=== PATIENT | male | born 1980 | race Caucasian/White ===

== ENCOUNTER 2017-02-24 15:55 | Observation (INO) | payer OTHER ==
--- NOTE | 2017-02-24 16:07 | EDPHY ---
H & P HPI/ROS: Chief Complaint: Difficulty speaking HPI: 36-year-old male with no significant past medical history notice that he started having difficulty finding words and speaking at 1:30 a.m. this afternoon. Patient states at 1st it was very difficult but is a bit better now. Coworkers noticed his changes and called 911. Stroke alert was called by EMS. Pre-hospital blood sugar was 188. Patient has been in his normal state health. No recent falls or head injury. ROS: 10 point Review of Systems is negative except as noted in the HPI. PMH: Denies Social History: No smoking, no alcohol, no recreational drug use Family History: non-contributory Physical Exam: Gen: Awake, Alert, No Distress HEENT: Nose: no rhinorrhea Eyes: PERRLA, EOMI Mouth: Moist mucosa Neck: Supple, no JVD Chest: nontender, lungs clear to auscultation Heart: S1, S2 normal, no murmur Abd: Soft, non-tender, no guarding Back: no CVA tenderness, no midline tenderness Ext: no edema, non-tender Skin: no rash Neuro: Per NIH stroke score Constitutional: Initial Vital Signs Temperature (C) 36.9 C 02/24/17 15:55 Heart Rate 98 02/24/17 15:55 Respiratory Rate 16 02/24/17 15:55 Blood Pressure 139/90 H 02/24/17 15:55 O2 Sat (%) 100 02/24/17 15:55 O2 Delivery Mode Room Air Allergies/Adverse Reactions: No Known Allergies Allergy (Unverified 02/06/13 14:46) Home Medications: Medication Instructions Recorded Herbals/Supplements -Info Only 1 ea PO DAILY 02/24/17 Ibuprofen [Motrin (*)] 200 - 400 mg PO DAILY PRN 02/24/17 Medical Decision Making - Diagnostics Imaging Results: Imaging Impressions Head CT 02/24/17 16:04 Impression: 1. No significant intracranial abnormality seen. Subsequent CT angiogram procedure was performed. Findings discussed with Willis Cornejo MD at 16:12 hour, 02/24/2017. Head CTA 02/24/17 16:04 Impression: Normal. Findings and recommendations discussed with Willis Cornejo MD at 1631 hour, . Final report concurs with initial preliminary interpretation. Neck CTA 02/24/17 16:04 Impression: Normal. Note: All stenoses are calculated using NASCET Criteria. Findings and recommendations discussed with Willis Cornejo MD at 1630 hour, . Final report concurs with initial preliminary interpretation. ED Course/Re-evaluation: A 36-year-old male with new onset of expressive in possibly a receptive aphasia at 1:30 a.m. this afternoon. Symptoms had improved by the time he got here but still had an NIH score of 1 with an expressive aphasia. Patient evaluated in the hallway sent immediately to CT scan. 1620 CT noncontrast is negative per Dr. Mcmahon. Will be obtaining CTA. 1630 symptoms have resolved. Patient no longer has a facial. Discussed with Dr. Bey, [facility]. He has evaluated the patient via the computer. He is in agreement. He is given NIH score is 0 at this time. Case discussed with Dr. Navas, radiology. CT angiogram is negative. Will give 325 mg of aspirin now. [address] Shields, hospitalist. He will admit to his service for further care. - Data Points Laboratory Results: Laboratory Results 02/24/17 16:00 02/24/17 16:00 02/24/17 02/24/17 02/24/17 16:00 16:00 15:54 WBC 14.16 10^3/uL H 10^3/uL (3.80-9.50) RBC 5.40 10^6/uL 10^6/uL (4.40-6.38) Hgb 17.4 g/dL g/dL (13.7-17.5) POC Hgb 18.0 gm/dL H gm/dL (13.7-17.5) Hct 49.4 % % (40.0-51.0) POC Hct 53 % H % (40-51) MCV 91.5 fL fL (81.5-99.8) MCH 32.2 pg pg (27.9-34.1) MCHC 35.2 g/dL g/dL (32.4-36.7) RDW 11.8 % % (11.5-15.2) Plt Count 246 10^3/uL 10^3/uL (150-400) MPV 10.2 fL fL (8.7-11.7) Neut % (Auto) 82.5 % H % (39.3-74.2) Lymph % (Auto) 10.0 % L % (15.0-45.0) [place] % (Auto) 6.9 % % (4.5-13.0) Eos % (Auto) 0.1 % L % (0.6-7.6) Baso % (Auto) 0.1 % L % (0.3-1.7) Nucleat RBC Rel Count 0.0 % % (0.0-0.2) Absolute Neuts (auto) 11.69 10^3/uL H 10^3/uL (1.70-6.50) Absolute Lymphs (auto) 1.41 10^3/uL 10^3/uL (1.00-3.00) Absolute Monos (auto) 0.97 10^3/uL H 10^3/uL (0.30-0.80) Absolute Eos (auto) 0.02 10^3/uL L 10^3/uL (0.03-0.40) Absolute Basos (auto) 0.02 10^3/uL 10^3/uL (0.02-0.10) Absolute Nucleated RBC 0.00 10^3/uL 10^3/uL (0-0.01) Immature Gran % 0.4 % % (0.0-1.1) Immature Gran # 0.05 10^3/uL 10^3/uL (0.00-0.10) POC Sodium 141 mEq/L mEq/L (134-144) Sodium 139 mEq/L mEq/L (134-144) POC Potassium 3.3 mEq/L mEq/L (3.3-5.0) Potassium 3.7 mEq/L mEq/L (3.5-5.2) POC Chloride 103 mEq/L mEq/L (97-110) Chloride 101 mEq/L mEq/L (97-110) Carbon Dioxide 21 mEq/l L mEq/l (22-31) Anion Gap 17 mEq/L H mEq/L (8-16) POC BUN 16 mg/dL mg/dL (7-23) BUN 15 mg/dL mg/dL (7-23) Creatinine 1.0 mg/dL mg/dL (0.7-1.3) POC Creatinine 1.0 mg/dL mg/dL (0.7-1.3) Estimated GFR > 60 Glucose 174 mg/dL H mg/dL (70-100) POC Glucose 181 mg/dL H mg/dL (70-100) Calcium 10.8 mg/dL H mg/dL (8.5-10.4) Phosphorus 0.9 mg/dL L mg/dL (2.5-4.5) Total Bilirubin 1.2 mg/dL mg/dL (0.1-1.4) AST 25 IU/L IU/L (17-59) ALT 32 IU/L IU/L (21-72) Alkaline Phosphatase 83 IU/L IU/L (38-126) Total Protein 8.2 g/dL g/dL (6.3-8.2) Albumin 5.2 g/dL H g/dL (3.5-5.0) Ethyl Alcohol < 10 mg/dL mg/dL (0-10) Medications Given: Discontinued Medications Acetaminophen (Tylenol 160mg/5ml Oral Liquid) 1,000 mg PO EDNOW ONE Stop: 02/24/17 17:07 Last Admin: 02/24/17 17:07 Dose: 1,000 mg Aspirin (Aspirin) 325 mg PO EDNOW ONE Stop: 02/24/17 16:35 Last Admin: 02/24/17 16:39 Dose: 325 mg Point of Care Test Results: 02/24/17 15:54 POC Sodium 141 POC Potassium 3.3 POC Chloride 103 POC BUN 16 POC Creatinine 1.0 POC Glucose 181 H Departure - Departure Disposition: [facility] Acute Clinical Impression: Transient cerebral ischemia Condition: Fair NIH Stroke Scale Date of Exam: 02/24/17 Time of Exam: 16:00 Level of Consciousness: Alert LOC Questions: Answers Both LOC Commands: Performs Both Correctly Best Gaze: Normal Visual: No Visual Loss Facial Palsy: Normal Motor Arm-Left: No Drift Motor Arm-Right: No Drift Motor Leg-Left: No Drift Motor Leg-Right: No Drift Limb Ataxis: Absent Sensory: Normal Best Language: Mild/Mod Aphasia Dysarthria: Normal Extinction and Inattention (Neglect): No Abnormality NIH Scale Score: 1
[2017-02-24 16:19] LABS: % IMMATURE GRANULYOCYTES 0.4 % (0.0-1.1); ABSOLUTE IMMATURE GRANULOCYTES 0.05 10^3/uL (0.00-0.10); ADD DIFF? NO; ADD MORPH? NO; ADD SCAN? NO; ATYPICAL LYMPHOCYTE FLAG 0 (0-99); FRAGMENT RBC FLAG 0 (0-99); HEMATOCRIT 49.4 % (40.0-51.0); HEMOGLOBIN 17.4 g/dL (13.7-17.5); LEFT SHIFT FLG 0 (0-99); LIPEMIA HEMOLYSIS FLAG 90 (0-99); MEAN CELL HEMOGLOBIN 32.2 pg (27.9-34.1); MEAN CELL HEMOGLOBIN CONCENTR. 35.2 g/dL (32.4-36.7); MEAN CELL VOLUME 91.5 fL (81.5-99.8); MEAN PLATELET VOLUME 10.2 fL (8.7-11.7); PLATELET CLUMPS FLAG 10 (0-99); PLATELET COUNT 246 10^3/uL (150-400); RED CELL DISTRIBUTION WIDTH 11.8 % (11.5-15.2)
[2017-02-24] MEDS ORDERED: IOPAMIDOL (ISOVUE 370) 100 ML BTL IV ONE (16:20)
--- NOTE | 2017-02-24 16:26 | CPEKG ---
Heart Rate: 92 RR Interval: 652 P-R Interval: 160 QRSD Interval: 96 QT Interval: 376 QTC Interval: 466 P Kinde: 80 QRS Kinde: -52 T Wave Kinde: 70 EKG Severity - ABNORMAL ECG - EKG Impression: SINUS RHYTHM EKG Impression: LAD, CONSIDER LEFT ANTERIOR FASCICULAR BLOCK EKG Impression: BORDERLINE T ABNORMALITIES, ANT-LAT LEADS Electronically Signed By: Willis Cornejo 24-Feb-2017 23:31:38
[2017-02-24 16:30] LABS: ALANINE AMINOTRANSFERASE 32 IU/L (21-72); ALBUMIN 5.2 g/dL (3.5-5.0); ALKALINE PHOSPHATASE 83 IU/L (38-126); ANION GAP 17 mEq/L (8-16); ASPARTATE AMINOTRANSFERASE 25 IU/L (17-59); BILIRUBIN,TOTAL 1.2 mg/dL (0.1-1.4); CALCIUM 10.8 mg/dL (8.5-10.4); CARBON DIOXIDE 21 mEq/l (22-31); CHLORIDE 101 mEq/L (97-110); ETHANOL SERUM < 10 mg/dL (0-10); GLOMERULAR FILTRATION RATE > 60; GLUCOSE 174 mg/dL (70-100); POTASSIUM 3.7 mEq/L (3.5-5.2); SODIUM 139 mEq/L (134-144); TOTAL PROTEIN 8.2 g/dL (6.3-8.2)
[2017-02-24] MEDS ORDERED: ASPIRIN 325 MG TAB PO ONE (16:34)
--- NOTE | 2017-02-24 16:37 | PDCONSULT ---
Makeup Instructor Note: [facility] Note Demographics Consult Type Acute Stroke First Name Jose Last Name Mariam Date of 1980 Age: 36 Gender Male Time of initial page (): 02/24/2017 16:27 Time of return call (): 02/24/2017 16:27 Time Ready to Initiate Telemed Consult (): 02/24/2017 16:28 HPI Additional History (Free Text): 36yo right handed man who presents with expressive aphasia. Noticed initially at 130PM. He is improving. He states that at around 130, he was dizzy, and then sat down. He had lunch at 2PM. At 140PM, he was having issues with getting words out. He has no vision issues. He has a small headache, but no light or sound sensitivity. PMH-- Past Medical History: Denies PMH Social History: non-smoker, non-drinker, no drugs Medications: denies medications Exam Vitals: vital signs reviewed SBP: 147 DBP: 96 NIHSS Time (): 02/24/2017 16:32 LOC 1a: 0 = Alert; keenly responsive LOC 1b: 0 = Answers both questions correctly LOC Commands: 0 = Performs both tasks correctly Best Gaze: 0 = Normal Visual: 0 = No visual loss Facial Palsy 0 = Normal symmetrical movements Motor Arm L: 0 = No drift; limb holds 90 (or 45) degrees for full 10 seconds Motor Arm R: 0 = No drift; limb holds 90 (or 45) degrees for full 10 seconds Motor Leg L: 0 = No drift; leg holds 30-degree position for full 5 seconds Motor Leg R: 0 = No drift; leg holds 30-degree position for full 5 seconds Limb Ataxia 0 = Absent Sensory: 0 = Normal; no sensory loss Best Language: 0 = No aphasia; normal Dysarthria: 0 = Normal Extinction + Inattention: 0 = No abnormality NIHSS: [address]: no bleed CTA Head no large vessel occlusion CTA Neck patent vessels Assessment Assessment: TIA to left hemisphere Plan Lytic/Intervention: NOT IV or IA candidate tPA Exclusion (< 3hr window) Mild or improving symptoms Target Blood Pressure: SBP < 220 Labs Ammonia, B 12, Comprehensive metabolic panel, ESR, HgbA1c, Lipid Panel, TSH, UA, UDS Imaging MRI brain without Diagnostic test echocardiogram with bubble Therapy/Eval PT/OT, Speech/Swallow therapy consult Medication aspirin 325mg per day VTE Prophylaxis SCD, Heparin 5000 units subcutaneously q 12 hours Other LDL goal less than 70, permissive HTN, telemetry monitoring, I have discussed my recommendations with the referring provider Disposition admit
[2017-02-24] MEDS ORDERED: ACETAMINOPHEN 500 MG TAB ONE (17:05)
[2017-02-24] MEDS ORDERED: ACETAMINOPHEN 160 MG/5 ML UDCUP PO ONE (17:06)
[2017-02-24] MEDS ORDERED: ACETAMINOPHEN 325 MG TAB PO PRN (17:34)
[2017-02-24] MEDS ORDERED: ONDANSETRON 4 MG/2 ML VIAL IVP PRN (17:34)
[2017-02-24] MEDS ORDERED: ONDANSETRON DISINTEGRATING 4 MG TAB PO PRN (17:34)
[2017-02-24] MEDS ORDERED: NS 1,000 ML IV SCH (17:45)
--- NOTE | 2017-02-24 19:04 | GHP ---
[f rep st] HISTORY AND PHYSICAL DATE OF ADMISSION: 02/24/2017 HISTORY OF PRESENT ILLNESS: The patient is a 36-year-old gentleman who presented to the ER as a stro ke alert secondary to aphasia. The ER doctor noted that he was aphasic and this happened at work. Nikole edward was unable to name objects. This happened about 1:30 p.m., and he presented shortly thereafter. When I speak with the patient, he describes feeling lightheaded and dizzy, and multiple episodes of a lmost passing out, and speaks as if the aphasia was secondary. His story is somewhat disjointed, and the patient appears well dressed and conversant here with his , but also a bit confused and his acknowledges that he is off. His showed me texts that he sent her during this episode and they were a bit nonsensical and not his standard texting. He denies drugs or alcohol today. He does work as a manufacturing weaver. Denies chemical exposures. His has noted that he has had some episodes of syncope when he has cut his fingers that sound a bit like vasovagal episodes. His pulse is 90 here. He is uncertain if that is his baseline. He has not had fever, chills, cough, sputum, nausea, vomiting, diarrhea. He does not have a history of arrhythmia. He is originally [facility]. He describes good exercise tolerance. He is a nonsmoker, and essentially has no risk fac tors or family history for vascular disease. When I speak to the patient, he is able to name objects but does still seem a bit off. REVIEW OF SYSTEMS: Complete 10-point review of systems conducted, and negative except as noted in e HPI. Addendum the HPI: The patient denies focal weakness or numbness on his body or limbs. PAST MEDICAL HISTORY: None. SOCIAL HISTORY: No tobacco. No recreational drug use. Some alcohol. FAMILY HISTORY: Reviewed and unremarkable. ALLERGIES: No known drug allergies. HOME MEDICATIONS: None. PHYSICAL EXAM: VITAL SIGNS: Temp 37, blood pressure 139/90, pulse 90, breathing 16 times a minute, 100% on room air. GENERAL: No acute distress. Well groomed. HEENT: Sclerae anicteric. Oropharyn x clear. Mucous membranes are moist. NECK: Supple without any lymphadenopathy or JVD. LUNGS: Marin ar to auscultation bilaterally. HEART: S1, S2. Borderline tachy. ABDOMEN: Soft, nontender, nondi stended. LOWER EXTREMITIES: Without edema. Calves nontender. SKIN: Without rash. NEUROLOGIC: T he patient is able to name objects, follow commands. Has normal cerebellar testing. Normal upper ex tremity and lower extremity strength and sensation bilaterally. He does seem a bit off in terms of j ust slower to process than I would anticipate and his corroborates this. LABS: White count 14, hematocrit 49, platelets are 246,000. Sodium 139, potassium 3.7, chloride 101, bicarb 27, BUN 15, creatinine 1.0, glucose 174. Calcium 10. 8 which is slightly high. Phosphorus 0.9. Albumin is 5.2. Ethanol less than 10. Head CT shows no significant intracranial abnormality. Head and neck CTA shows branches are normal. No evidence of aneurysm or malformation. No occlusions. Neck CTA is normal. EKG, interpreted by me, shows sinus at 92, with left axis deviation. Nonspecific interventricular co nduction delay. No ST or T-wave changes. No prior for comparison. I have discussed the case with Dr. Juan Ramon Cornejo, who has discussed the case with [facility]. ASSESSMENT AND PLAN: This is a 36-year-old gentleman with no vascular risk factors, who presents wit h word-finding transient ischemic attack versus hypotension and presyncope. 1. Question transient ischemic attack. It is not clear to me that this represents a transient ische kentrell attack, although I believe it is reasonable to work it up as such. We will order an MRI of his b rain to evaluate for stroke, echocardiogram, telemetry, hemoglobin A1c and cholesterol panel. His sy mptoms have largely resolved, and based on that he is not a candidate for lytics. His NIH stroke sca le was 1 on arrival to the hospital. 2. Question arrhythmia. His story to me is actually concerning for a bradyarrhythmia in that he fel t presyncopal and has episodes of syncope. We will follow him on telemetry. He is certainly tachyca rdic now. Echocardiogram will be obtained. 3. Hyperglycemia. This is a nonfasting sample. It happened after lunch. It is a little higher benjamín n I would expect in this lean gentleman. We will check hemoglobin A1c. 4. Tachycardia. This is borderline and may be the anxiety of the situation. Will follow on telemet ry. 5. Prophylaxis. Pharmacologic prophylaxis is not indicated unless in the hospital longer than 48 ho urs. 6. Disposition. Observation status. /[id number]/MODL
[2017-02-24 19:28] LABS: HEMATOCRIT 49.3 % (40.0-51.0)
[2017-02-25 05:23] LABS: INR 1.1 (0.83-1.16); PROTIME(PATIENT) 14.1 SEC (12.0-15.0)
[2017-02-25 05:36] LABS: CHOLESTEROL 141 mg/dL (140-200); CHOLESTEROL/HDL RATIO 2.94 RATIO (1.00-4.97); HIGH DENSITY LIPOPROTEIN 48 mg/dL (40-65); LDL/HDL RATIO 1.71 RATIO (1.00-3.64); LOW DENSITY LIPOPROTEIN 82 mg/dL (70-100); NON-HIGH DENSITY LIPOPROTEIN 93 mg/dL (90-129); TRIGLYCERIDE 55 mg/dL (40-150); VERY LOW DENSITY LIPOPROTEINS 11 mg/dL (8-25)
[2017-02-25] MEDS ORDERED: GADOBUTROL 10 ML VIAL IVP ONE (09:19)
[2017-02-25 09:31] LABS: HEMOGLOBIN A1C 5.2 % (4.0-6.0)
--- NOTE | 2017-02-25 09:57 | NEUROPROG ---
Assessment: HOSPITAL NEUROLOGY CONSULT REQUESTING: Donnie Shields MD REASON: ? TIA HPI: 36 year old right-handed man with no PMH who presented to our facility yesterday as a code stroke. Patient was at work and feeling normal, but around 1:30pm he felt an overwhelming sense of lightheadedness (he uses the word dizzy, which actually was a sense of lightheadedness). He felt nausea with this. He states he was feeling "off" and had trouble with word-finding - states he could get his words out, but couldn't remember certain words. He states he felt the need to sit down, which seemed to help a little with the lightheadedness. He was not having any CP, palpitations. He endorsed a mild holocranial headache, but he can't give me any description of quality. He feels like his ears were ringing. He texted his regarding his symptoms. His shows me texts, which initially have a few spelling errors, then a single brief communication that is nonsensical. She phoned him because of this - she states he was not dysarthric and he was making sense, but he seemed to be panting heavily, having to work hard to get his words out, like he was short of breath. Patient does not recall any SOB. Coworkers took note of his symptoms and summoned EMS. Symptoms seemed to last about an hour or so. Code stroke was de-escalated in the ED. He had an MRI brain wo which showed several scattered punctate areas of T2 hyperintensity in the subcortical and juxtacortical white matter without any restricted diffusion or other sequence changes. Metabolic/toxic screening only revealed a leukocytosis of 14k - no fevers, but he was tachycardic at points during evaluation. He denies feeling febrile. No chills, neck stiffness , photophobia. Denies any recent illness or toxic exposure. Denies any weakness, sensory loss, gait change, visual disturbance, bowel/bladder dysfunction, neck/back pain, heat intolerance, Lhermitte phenomenon. He does endorse prior syncopal episodes. ROS: As per the HPI, otherwise a complete 12 point ROS was performed and is negative ALLERGIES AND MEDS: As recorded in the EMR - reviewed and reconciled PFSH: As per the intake H&P by Dr. Shields from yesterday EXAM: VS reviewed in EMR GEN: WDWN laying in NAD HEENT: NCAT, sclera anicteric, conjunctiva not injected, MMM, oropharynx clear, no scalp tenderness NECK: supple, nontender, no meningismus CV: RRR s1 s2 wo m/r/c/g. Carotid pulses 2+ wo bruit NEURO: MS: awake, alert, oriented to all spheres. Speech nondysarthric. No language disturbance. Follows commands. Attends to both sides. Some loss of detail surrounding events leading to admission, but otherwise grossly intact memory. Mood a little depressed, odd affect. Good fund of knowledge. CN: pupils 5mm round and reactive. Fundi with sharp discs. VFF. Primary gaze centered. Full ocular motility. Facial sensation preserved. Face symmetric. Hearing grossly intact to finger rub. Palatoglossal movements intact. Shoulder shrug and head turn strong. MOTOR: normal bulk/tone. No adventitial movements. Full power throughout. SENSORY: intact to all modalities throughout. No extinction. COORD: no ataxia FN/HS. Faye preserved. REFLEX: plantars down. No clonus. DTRS 2/4. GAIT: deferred to PT safety eval DATA REVIEW: Labs reviewed in EMR PERSONALLY INTERPRETED RESULTS AND DATA: MRI brain wo - several scattered punctate areas of T2 hyperintensity in the subcortical and juxtacortical white matter without any restricted diffusion or other sequence changes CTA head/neck - normal IMPRESSION AND RECOMMENDATIONS: // LIGHTHEADEDNESS - resolved // ENCEPHALOPATHY - improved // LEUKOCYTOSIS Events sound like they may be related to lack of global cerebral perfusion (? arrhythmia), resulting in lightheadedness, nausea, encephalopathy - has prior history of syncopal episodes. However, leukocytosis and DE ANDA may be from a more systemic inflammatory of infectious issue, like a viral meningitis. I have a low suspicion for anything vascular in origin - CTA was normal and showed no change in vascular caliber. Suspect the MRI findgins are incidental, but they should be reconciled with a contrasted MRI to ensure no inflammatory/neoplastic/ infectious component. Agree with pursuing CSF sampling. - MRI brain w/ contrast - should be done prior to LP to avoid iatrogenic pachymeningeal enhancement - LP after MRI - Cardiac screening per primary team - Continue supportive measures Objective: Vital Signs Temp Pulse Resp BP Pulse Ox 36.8 C 77 14 101/68 97 02/25/17 07:06 02/25/17 07:06 02/25/17 07:06 02/25/17 07:06 02/25/17 07:06 02/24/17 02/25/17 02/26/17 05:59 05:59 05:59 Intake Total 1480 Output Total 1700 Balance -220 PT 14.1 SEC (12.0-15.0) 02/25/17 05:03 INR 1.10 (0.83-1.16) 02/25/17 05:03 Allergies/Adverse Reactions: No Known Allergies Allergy (Unverified 02/06/13 14:46)
[2017-02-25] MEDS ORDERED: LIDOCAINE 1% 300 MG/30 ML SDV ONE ×2 (14:03)
--- NOTE | 2017-02-25 14:43 | HOSPPROG ---
Hospitalist Progress Note Assessment/Plan: #TIA?: CTA, MRI unrevealing. No arrhythmia on EKG. Echo normal -LP with no whites, no organisms on gram stain. Repeat MRI without masses, leptomeningitis -Rx for outpatient Holter DC today Subjective: no headache or dizziness today Objective: Vital Signs Temp Pulse Resp BP Pulse Ox 37.2 C 83 14 113/71 95 02/25/17 11:51 02/25/17 11:51 02/25/17 11:51 02/25/17 11:51 02/25/17 11:51 02/24/17 02/25/17 02/26/17 05:59 05:59 05:59 Intake Total 1480 Output Total 1700 Balance -220 PT 14.1 SEC (12.0-15.0) 02/25/17 05:03 INR 1.10 (0.83-1.16) 02/25/17 05:03 - Physical Exam Constitutional: no apparent distress Eyes: PERRL Ears, Nose, Mouth, Throat: moist mucous membranes Cardiovascular: regular rate and rhythym, no murmur, rub, or gallop, No systolic murmur Respiratory: no respiratory distress Gastrointestinal: normoactive bowel sounds, soft, non-tender abdomen Genitourinary: no bladder fullness Skin: warm Musculoskeletal: full muscle strength Neurologic: AAOx3, CN II-XII Intact Psychiatric: interacting appropriately ICD10 Worksheet Patient Problems: Problems Problem Status Onset Transient cerebral ischemia Acute
--- NOTE | 2017-02-25 15:57 | ECHO ---
[email or web address] [address] [address] Main: [phone] Fax: Transthoracic Echocardiogram Name: KALEY ABRAMS MR#: [id number] Study Date: 02/25/2017 Study Time: 08:53 AM Date of : 1980 Age: 36 year(s) Height: 193 cm (76 in.) Weight: 72.58 kg (160 lb.) BSA: 2.02 m2 Gender: Male Examination: Echo Indication: TIA, Eval for source of emboli Image Quality: Contrast: Requested by: Donnie Shields BP: / Heart Rate: Rhythm: Indication: TIA, Eval for source of emboli Procedure Staff Shuttle Threader: Tate Thorne Reading Physician: Sekou Gaytan Conclusions: ? Low normal left ventricular systolic function (EF 73 %). ? Normal diastolic LV function. ? There is no obvious source of cardiac emboli ? Normal RV function. ? The mitral valve is normal in appearance and function. ? The aortic valve is normal in appearance and function. ? No pericardial effusion. Measurements: Chambers Valvular Assessment AV/MV Valvular Assessment TV/PV Normal Normal Normal Name Value Range Name Value Range Name Value Range Ao Kendal (MM): 2.8 cm (2.2 cm-3.7 AV Vmax: 1.33 m/s (1 m/s-1.7 cm) m/s) IVSd (2D): 0.8 cm (0.6 cm-1.1 AV maxP mmHg ( - ) cm) LVOT Vmax: 1.00 m/s (0.7 m/s-1.1 LVDd (2D): 4.9 cm (4.2 cm-5.9 m/s) cm) MV E Vmax: 1.05 cm/s ( - ) LVDs (2D): 2.8 cm (2.1 cm-4 MV A Vmax: 0.50 cm/s ( - ) cm) MV E/A: 2.10 ( - ) LVPWd (2D): 0.8 cm (0.6 cm-1 cm) LVEF (2D): 73 (>=54 %) Continued Measurements: Valvular Assessment AV/MV Name Value MV E' Septal: 0.12 m/s MV E/E' Septal: 8.70 MV E/E' Lateral: 6.30 Patient: KALEY ABRAMS Study Date: 02/25/2017 Page 1 of 2 08:53 AM Findings: Left Ventricle: Normal size left ventricle. Low normal left ventricular systolic function (EF 73 %). Normal diastolic LV function. There is no obvious source of cardiac emboli Right Ventricle: Normal size right ventricle. Normal RV function. Left Atrium: The left atrium is normal in size. Right Atrium: The right atrium is normal in size. Mitral Valve: The mitral valve is normal in appearance and function. Aortic Valve: The aortic valve is normal in appearance and function. Tricuspid Valve: The tricuspid valve is normal in appearance and function. Pulmonic Valve: The pulmonic valve is normal in appearance and function. Great Vessels: The aorta is normal. Pericardium: No pericardial effusion. (No Signature Object) Patient: KALEY ABRAMS Study Date: 02/25/2017 Page 2 of 2 08:53 AM [id number]
[2017-02-25 16:04] LABS: CSF APPEARANCE CLEAR (CLEAR); CSF COLOR COLORLESS (COLORLESS); CSF SUPERNATANT COLORLESS (COLORLESS); WBC, CSF 0 /mm3 (0-5)
[2017-02-25 16:15] LABS: PROTEIN, CSF 39 mg/dL (12-60)
[2017-02-25 16:29] VITALS: BP 139/84; PULSE 80; RESP 15; TEMP 98.6; O2SAT 96
--- NOTE | 2017-02-25 16:47 | ASMTCMCOM ---
CM Note CM Note Notes: Pt admitted with possible TIA. Anticipate pt will DC with no DC needs. C/M available if needs change. Date Signed: 02/25/2017 04:46 PM Electronically Signed By:Lizet Trotter LCSW
--- NOTE | 2017-02-25 17:51 | GDS ---
[f rep st] DISCHARGE SUMMARY DISCHARGE DIAGNOSIS: Possible syncope versus transient ischemic attack. HISTORY OF PRESENT ILLNESS: A 36-year-old gentleman who presented to the ER as a stroke alert secondary to aphasia. He was unable to name objects at work. This happened at 1:30 p.m., and he presented shortly thereafter. During hospitalist interview, he described feeling lightheaded and dizzy and had multiple episodes of almost passing out. Story was disjointed, but he did appear confused, which his acknowledged. His showed staff texts sent during the episode, and they were a bit nonsensical, and not a standard texting. He denies alcohol and drugs. No fevers, chills, or sweats. He has had 5 episodes of syncope in the past when he has cut his fingers, though he does tolerate blood from other cuts. Denies fevers, chills, and sweats. No nausea, vomiting, or diarrhea. No known sudden cardiac in the family. No headache. HOSPITAL COURSE BY PROBLEM: 1. Possible TIA: evaluated by Neurology. Initial brain MRI showed multiple nonspecific hyperintense T2/FLAIR signal abnormalities in the white matter and cerebral hemispheres. This was repeated today with contrast, and it showed no enhancing masses are leptomeningitis. CTA was not indicative of a vasculitic process, which was also confirmed by a normal ESR CRP. LP was negative for whites. No organisms on Gram stain. HSV and West Nile are pending. Negative tox screen. Another concern would be cardiac. The patient had a normal echocardiogram. There was no evidence of arrhythmia here. I have written a prescription for a 30-day Holter monitor as an outpatient. DISPOSITION: Patient is stable for discharge. FOLLOWUP: [facility] for a 30-day Holter monitor. LABORATORY PENDING: HSV, West Nile, and CSF culture. /[id number]/MODL MTDD
[2017-02-26] MEDS ORDERED: ASPIRIN EC 325 MG TAB PO SCH (09:00)
--- NOTE | 2017-02-26 16:19 | ASDISCHSUM ---
Discharge Information Plan Status:Home with No Needs Medically Cleared to Leave: Discharge Date:02/25/2017 05:55 PM CM D/C Disposition:Home, Routine, Self-Care ADT D/C Disposition:Home, Routine, Self-Care Projected Discharge Date:02/25/2017 05:55 PM Transportation at D/C: Discharge Delay Reason: Follow-Up Date:02/25/2017 05:55 PM Discharge Slot: Final Diagnosis: Placement Information Patient Contact Information Contact Name:VINNY Relationship: Address:[address] City:[facility] Phone: [facility] Code:[place] [address] Email: Financial Information Financial Class:[facility] Primary Plan Desc:[employer] OPEN ACC [facility] Primary Plan Number:[id number] Secondary Plan Desc: Secondary Plan Number: Assessment Information [facility] CM Progress Note CM Note CM Note Notes: Pt admitted with possible TIA. Anticipate pt will DC with no DC needs. C/M available if needs change. Date Signed: 02/25/2017 04:46 PM Electronically Signed By:Lizet Trotter LCSW Intervention Information
[2017-02-26 21:02] LABS: HSV 1 PCR, CSF Negative (Negative); HSV 2 PCR, CSF Negative (Negative)
[2017-02-27 13:07] LABS: INTERPRETATION 0 bands (<4); OLIGOCLONAL BANDING CSF 0 bands; OLIGOCLONAL BANDING SERUM 0 bands
== END 2017-02-25 17:55 | disposition home or self-care (01) ==
LOC: EDUNIT# → F3N 19:46
PROVIDERS: ADMIT Internal Medicine; ATTEND Internal Medicine
PROC: 009U3ZX Drainage of Spinal Canal, Percutaneous Approach, Diagnostic (ICD-10-PCS; principal; 2017-02-24)
DX: R42 Dizziness and giddiness (principal); R47.01 Aphasia; R41.82 Altered mental status, unspecified
CPT/HCPCS: 62270; 70450; 70496; 70498; 70551; 70552; 92523; 93005; 93306; 97165; G0378; 80305; 82947-QW; 83916-90; A9585; G0480; J2405; Q9967